=== PATIENT | female | born 1945 | race Caucasian/White ===

== ENCOUNTER → 2016-05-08 | Outpatient (CLI) | payer MEDICARE, OTHER ==
[~2016-05-08] MED LIST: ASA325 MG PO; ASPIRIN EC81 MG PO; B COMPLEX WITH1 EACH PO; CALCIUM 600 +1 EAC3 PO; CRANBERRY TABL1 EACH PO; CYMBALTA60 MG PO; EFFEXOR XR75 MG PO; FISH OIL OMEGA1 EAC1 PO; GLUTOSE 1537.5 GM PO; HAIR SKIN NAIL1 EACH PO; HYDROCODON-ACE1 EAC2 PO; LIPITOR DPS10 MG PO; LYRICA225 MG PO; METFORMIN HCL500 M2 PO; MIRALAX PACKET17 GM PO; MULTI VITAMIN1 EACH PO; NOVOLOG100 UNIT/2 SQ; OXY IR DPS5 MG PO; PLAVIX75 MG PO; PREVACID30 MG PO; SENOKOT S1 TAB PO; TENORMIN DPS50 MG PO; TYLENOL DPS325 MG PO; VISION VITAMIN1 EACH PO; VITAMIN D-32000 UNI1 PO
== END | disposition home or self-care (01) ==
LOC: PTH.S 10:12
DX: Z01.818 Encounter for other preprocedural examination (principal)

== ENCOUNTER 2016-05-20 09:58 | Inpatient (IN) | payer MEDICARE, OTHER ==
[~2016-05-20] VITALS: Ht 160 cm; Wt 82.0 kg
--- NOTE | 2016-05-20 14:09 | HP ---
ADMIT: 05/20/2016 RM/LOC: W.05 [facility] MR#: [id number] [address] [address] BRYSON MONTOYA [address] [place] [address] Pre-OP History and Physical SEX: F AGE: 71 : 1945 DATE OF SERVICE: CHIEF COMPLAINT: Right knee pain. HISTORY OF PRESENT ILLNESS: The patient is a 71-year white female with right knee DJD. She has had a left total knee arthroplasty done well from this. Right knee also failed nonoperative treatment. PAST MEDICAL HISTORY: Significant for anxiety, panic attacks, atrial fibrillation, history of lymphoma, history of depression, diabetes, fibromyalgia, GERD, irregular heartbeat, osteoarthritis, rheumatoid arthritis, sleep apnea. She has had knee arthroscopy, shoulder arthroscopy, carpal tunnel release, and again left knee replacement. MEDICATIONS: 1. Fish oil. 2. Aspirin. 3. Cranberry. 4. Vitamin B complex. 5. Biotin. 6. Plavix. 7. Lyrica. 8. Prevacid. 9. Vitamin D3. 10.Multivitamin. 11.Calcium. 12.Hydrocodone. 13.Cyclobenzaprine. 14.Crestor. 15.Atenolol. 16.Cymbalta. ALLERGIES: NO ALLERGIES. SOCIAL HISTORY: The patient does not smoke or regularly drink alcohol. PHYSICAL EXAMINATION: HEENT: Normocephalic and atraumatic. CV: Irregular heart. LUNGS: Benign. ABDOMEN: Benign. ABDOMEN: Benign. NEUROLOGIC: Awake and oriented x3. MUSCULOSKELETAL: Shows some mild swelling of the knee. Full extension, 110 degrees of flexion. Tender over the medial joint line of the patellofemoral joint. ADMIT: 05/20/2016 RM/LOC: W.05 [facility] MR#: [id number] [address] [address] BRYSON MONTOYA [address] [place] [address] Pre-OP History and Physical SEX: F AGE: 71 : 1945 IMAGING DATA: X-rays show right knee that DJD, almost [id number] medially; show some lateral joint line osteophytes, patellofemoral narrowing with osteophytic formation. ASSESSMENT AND PLAN: Right knee degenerative joint disease. At this point, we will plan right total knee arthroplasty. The patient understands the risks and benefits of the surgical intervention, which include, but not limited to infection, DVT, arthrofibrosis, neurovascular injury, early loosening, etc and desires to proceed. She will see her medical doctor for preoperative medical clearance and follow postoperatively in the hospital for anticoagulation and any medical issues that may arise. Please do refer that H and P for any in-depth medical issues or medication changes. Minh Soto MD/ karla JOB #: [id number] CC: Minh Soto, Attending Physician Jhoan Sears, Family Physician
[2016-05-24] MEDS ORDERED: EFFEXOR XR75 MG PO (14:10)
[2016-05-24] MEDS ORDERED: LYRICA225 MG PO (14:10)
[2016-05-24] MEDS ORDERED: CYMBALTA60 MG PO (14:10)
[2016-05-24] MEDS ORDERED: LIPITOR DPS10 MG PO (14:10)
[2016-05-24] MEDS ORDERED: ASA325 MG PO (14:10)
[2016-05-24] MEDS ORDERED: TENORMIN DPS50 MG PO (14:11)
[2016-05-24] MEDS ORDERED: SENOKOT S1 TAB PO (14:11)
[2016-05-24] MEDS ORDERED: MIRALAX PACKET17 GM PO (14:11)
[2016-05-24] MEDS ORDERED: MULTI VITAMIN1 EACH PO (14:12)
[2016-05-24] MEDS ORDERED: HYDROCODON-ACE1 EAC2 PO (14:12)
[2016-05-24] MEDS ORDERED: TYLENOL DPS325 MG PO (14:13)
[2016-05-24] MEDS ORDERED: NOVOLOG100 UNIT/2 SQ (14:13)
[2016-05-24] MEDS ORDERED: GLUTOSE 1537.5 GM PO (14:14)
[2016-05-24] MEDS ORDERED: OXY IR DPS5 MG PO (14:14)
[2016-05-24] MEDS ORDERED: HAIR SKIN NAIL1 EACH PO (14:15)
[2016-05-24] MEDS ORDERED: PLAVIX75 MG PO (14:15)
[2016-05-24] MEDS ORDERED: ASPIRIN EC81 MG PO (14:15)
[2016-05-24] MEDS ORDERED: PREVACID30 MG PO (14:15)
[2016-05-24] MEDS ORDERED: METFORMIN HCL500 M2 PO (14:15)
[2016-05-24] MEDS ORDERED: VITAMIN D-32000 UNI1 PO (14:15)
[2016-05-24] MEDS ORDERED: FISH OIL OMEGA1 EAC1 PO (14:16)
[2016-05-24] MEDS ORDERED: VISION VITAMIN1 EACH PO (14:16)
[2016-05-24] MEDS ORDERED: CALCIUM 600 +1 EAC3 PO (14:16)
[2016-05-24] MEDS ORDERED: CRANBERRY TABL1 EACH PO (14:16)
--- NOTE | 2016-05-27 14:12 | OR ---
ADMIT: 05/20/2016 RM/LOC: 504 [facility] MR#: [id number] [address] [address] BRYSON MONTOYA [address] [place] [address] Operative/Delivery Room Report SEX: F AGE: 71 : 1945 SURGERY DATE: 05/20/2016 SURGEON: Minh Soto MD PREOPERATIVE DIAGNOSIS: Right knee degenerative joint disease. POSTOPERATIVE DIAGNOSIS: Right knee degenerative joint disease. PROCEDURE PERFORMED: Right total knee arthroplasty with Xavier and Xavier system, size 3 posterior stabilized femoral component, size 3 tibial tray, 10 mm posterior stabilized tibial insert, size 35 patellar button. ASSISTANTS: Carl Butcher PA-C and PABLO Nance ANESTHESIA: Spinal. ESTIMATED BLOOD LOSS: Minimal. FLUIDS: Per anesthetic record. COMPLICATIONS: No complications. DRAIN: One drain. TOURNIQUET TIME: 52 minutes. CONDITION ON DISCHARGE: Patient returned to the recovery room in fair condition. INDICATION: The patient has been having right knee pain refractory to nonoperative treatment. She has had a left total knee arthroplasty, done very well from this. She desires right total knee arthroplasty. She understands the risks and benefits of procedure and desired to proceed with the operation. PROCEDURE IN DETAIL: The patient was taken to the OR, spinal placed. She was laid in the supine position. All bony prominences were well padded. Well- padded tourniquet applied to right lower extremity. Right lower extremity was prepped and draped in the usual sterile fashion. It was exsanguinated and tourniquet inflated to 350 mmHg. An anterior incision was then made over just above the patella, carried down the medial aspect of the tibial tubercle through the skin and subcutaneous tissue with a skin knife. Medial arthrotomy then performed with #10 blade. Patella everted, knee flexed. ACL, PCL, medial, and lateral menisci excised. Step drill was then used to open the intramedullary canal of the femur. I placed an IM alignment guide down the intramedullary canal of the femur, set at 11 mm resection, 5 degrees of valgus cut and pinned it to the anterior aspect of the distal femur. I then cut the distal femur using an oscillating saw. I removed this cutting block and sized the femur to 3. I placed a size 3 four-in-one cutting block on the distal aspect of the femur in 3 degrees of external rotation, made the 4 appropriate ADMIT: 05/20/2016 RM/LOC: 504 [facility] MR#: [id number] [address] [address] BRYSON MONTOYA [address] [place] [address] Operative/Delivery Room Report SEX: F AGE: 71 : 1945 cuts using an oscillating saw. I removed this cutting block and placed the box cutting jig on the distal aspect of the femur. I cut the box out of the distal femur using a reciprocating saw. The proximal tibia was then cut perpendicular to the long axis of the tibial shaft using the proximal tibial cutting guide and oscillating saw. The posterior aspect of the patella was cut, flush with the posterior aspects of the quadriceps patella tendons using the patella cutting saw. It was sized to a 35 and step drilled with a guide. Trial components were then placed. A size 3 tibial tray with 10 mm insert gave excellent range of motion, stability, and patellar tracking. Thus, the femoral component was step drilled. The tibial component was step drilled and cruciate punched. Trial components were then removed. Knee thoroughly irrigated with bacitracin solution and dried. Knee thoroughly injected with Exparel throughout. I then cemented the tibia, patellar, and femoral components into the place removing all extraneous cement as it dried. I impacted the 10 mm insert into the tibial tray and ran the knee through a range of motion. It had excellent range of motion, stability, and patellar tracking. Thus, one deep drain was then placed. Medial arthrotomy closed using #1 Vicryl, subcutaneous tissue closed using 2-0 Vicryl, and skin closed using quan. Wounds were washed, dried, dressed with sterile Adaptic, 4x4s, ABD, Webril, and Zev wrap. An ice pad placed on top of the Zev wrap, drapes removed, tourniquet let down. The patient transferred back to recovery room in fair condition. Minh Soto MD/ karla JOB #: [id number] CC: Minh Soto, Attending Physician Jhoan Sears, Family Physician
--- NOTE | 2016-06-10 15:15 | DS ---
ADMIT: 05/20/2016 RM/LOC: 504 [facility] MR#: [id number] [address] [address] [place] [address] General Discharge Summary SEX: F AGE: 71 : 1945 ADMISSION DATE: 05/20/2016 DISCHARGE DATE: 05/23/2016 REASON FOR ADMISSION: Elective right total knee arthroplasty after failing conservative management for osteoarthritis. PREOPERATIVE DIAGNOSIS: Right knee degenerative joint disease. POSTOPERATIVE DIAGNOSIS: Right knee degenerative joint disease. PROCEDURE PERFORMED: Right total knee arthroplasty with Exparel block. ANESTHETIC: Spinal. COMPLICATIONS: None. ESTIMATED BLOOD LOSS: Minimal. SURGEON: Minh Soto MD. ASSISTANTS: 1. Carl Butcher PA-C. 2. PABLO Nance. ACTIVE MEDICAL PROBLEMS: Osteoarthritis, anxiety, panic attacks, atrial fibrillation, history of lymphoma, depression, diabetes, fibromyalgia, GERD, rheumatoid arthritis, sleep apnea. HOSPITAL COURSE: Bryson was admitted on 05/20/2016, for elective right total knee arthroplasty, was completed successfully by Dr. Soto. There were no complications. Postoperatively, she did well with pain control with use of intraoperative Exparel as well as oral analgesics, participated well with physical therapy. Postoperative Hemovac was used and pulled on day #1. She did well and tolerated that. Remainder of the hospital course was unremarkable. She did, however, experienced mild acute surgical blood-loss anemia where her hemoglobin dropped to 8.7, but remained hemodynamically stable, did not require transfusion. By postoperative day #3, she was stable and ready for discharge with plans for continued outpatient therapy. DISCHARGE MEDICATIONS: 1. Aspirin 325 mg daily. 2. Cymbalta 60 mg daily. 3. Effexor 75 mg daily. 4. Lipitor 10 mg daily. 5. Lyrica 225 mg b.i.d. 6. MiraLax p.r.n. 7. Senokot b.i.d. p.r.n. ADMIT: 05/20/2016 RM/LOC: 504 [facility] MR#: [id number] [address] [address] [place] [address] General Discharge Summary SEX: F AGE: 71 : 1945 8. Tenormin 50 mg b.i.d. 9. Therapeutic multivitamin daily. 10.Tylenol 650 mg q.4 p.r.n. 11.Ultram 50 mg one to two q.6 p.r.n. 12.NovoLog sliding scale insulin as directed. 13.OxyIR 5 mg one to two q.4 p.r.n. DISCHARGE INSTRUCTIONS: Bryson will undergo physical therapy per total knee arthroplasty protocol, wear her knee immobilizer at night x4 weeks, MANUEL hose x4 weeks. She will follow up in the Orthopedic office in 2 weeks for wound check, 6 weeks with x-rays. She will follow up with primary care, Dr. Sears in 2 weeks. Carl Butcher PA-C / Minh Soto MD / karla JOB #: [id number] CC: Minh Soto MD, Attending Physician Jhoan Sears MD, Family Physician
[2016-06-11] MEDS ORDERED: B COMPLEX WITH1 EACH PO (06:18)
== END 2016-05-23 14:00 | DRG 470 ==
LOC: WOR 09:58 → 5MS 09:58
PROVIDERS: ADMIT Orthopaedic Surgery
PROC: 0SRC0J9 Replacement of Right Knee Joint with Synthetic Substitute, Cemented, Open Approach (ICD-10-PCS; principal; 2016-05-20)
DX: M17.11 Unilateral primary osteoarthritis, right knee (principal); D62 Acute posthemorrhagic anemia; I48.91 Unspecified atrial fibrillation; E11.9 Type 2 diabetes mellitus without complications; M06.9 Rheumatoid arthritis, unspecified; F41.0 Panic disorder [episodic paroxysmal anxiety]; F32.9 Major depressive disorder, single episode, unspecified; I10 Essential (primary) hypertension; M79.7 Fibromyalgia; E55.9 Vitamin D deficiency, unspecified; M48.06 Spinal stenosis, lumbar region; E78.5 Hyperlipidemia, unspecified; K21.9 Gastro-esophageal reflux disease without esophagitis; G47.30 Sleep apnea, unspecified; Z96.652 Presence of left artificial knee joint; Z79.82 Long term (current) use of aspirin; Z85.72 Personal history of non-Hodgkin lymphomas; Z86.73 Personal history of transient ischemic attack (TIA), and cerebral infarction without residual deficits; Z87.442 Personal history of urinary calculi; Z79.84 Long term (current) use of oral hypoglycemic drugs

== ENCOUNTER 2016-06-09 07:08 | Inpatient (IN) | payer MEDICARE, OTHER ==
[~2016-06-09] VITALS: Ht 160 cm; Wt 78.0 kg
--- NOTE | ~2016-06-09 | CO ---
ADMIT: 06/09/2016 RM/LOC: 404 [facility] MR#: [id number] 2620 [facility] [address] [place] [phone] BRYSON MONTOYA [address] [place] [address] Consultation SEX: F AGE: 71 : 1945 DATE OF CONSULTATION: 06/09/2016 ATTENDING PHYSICIAN: Jhoan Sears CONSULTING PHYSICIAN: Migue Leiva MD HISTORY: This is a 71-year-old female, who is nearly 3 weeks postop from a joint replacement, who presented to the ER today with complaints of rectal bleeding. She noticed blood in the toilet after a bowel movement. She has had some constipation after the joint replacement. She had a small amount of clot present with the stool and subsequently also had some bloody drainage once she came to the ER. She was evaluated, found to be anemic. However, that anemia was very similar to what it had been and was actually better than her prior admission. Since admission, she has not had further rectal bleeding to speak of. She has personal history of lymphoma. She just recently after surgery did resume her Plavix and aspirin therapies. She had a colonoscopy in 2014 which was otherwise normal with the exception of internal hemorrhoids. She has never had a bleeding ulcer. She did not notice any black stool and has no other abdominal or GI symptoms. PAST MEDICAL HISTORY: Lymphoma, diabetes, gastroesophageal reflux disease, fibromyalgia, atrial fibrillation, depression, panic attacks, anxiety, rheumatoid arthritis, osteoarthritis, sleep apnea. PAST SURGICAL HISTORY: Knee arthroscopy, shoulder arthroscopy, carpal tunnel release, left knee replacement. MEDICATIONS: 1. Plavix. 2. Aspirin. 3. Fish oil. 4. Cranberry. 5. Lyrica. 6. Prevacid. 7. Vitamin D3. 8. Multivitamin. 9. Calcium. 10.Hydrocodone. 11.Cyclobenzaprine. 12.Crestor. 13.Atenolol. 14.Cymbalta. ALLERGIES: NO KNOWN MEDICAL ALLERGIES. SOCIAL HISTORY: She does not drink alcohol or smoke. REVIEW OF SYSTEMS: A 10-point review of systems is performed and negative for any other recent change with the exception of the symptoms mentioned in the ADMIT: 06/09/2016 RM/LOC: 404 [facility] MR#: [id number] [address] [address] BRYSON MONTOYA [address] [place] [address] Consultation SEX: F AGE: 71 : 1945 history of present illness. PHYSICAL EXAMINATION: GENERAL: Bryson is alert, oriented, and in no acute distress. She is afebrile and vital signs remain stable. Cranial nerves are intact. NECK: Supple, without lymphadenopathy. LUNGS: Clear bilaterally. HEART: Regular rate and rhythm without murmur. ABDOMEN: Soft and nontender. EXTREMITIES: Calves are soft bilaterally with no clubbing, cyanosis, or edema. No new focal neurologic deficit. IMPRESSION: Rectal bleeding 3 weeks postop from her right total knee replacement. She had resumed her anti-platelet therapies with aspirin and Plavix. PLAN: Given that she has had a colonoscopy in 2015 less than 2 years ago, would not plan to endoscopically evaluate unless she has ongoing signs of bleeding. We will hold her anti-platelet therapy currently and assess to see if this will stop. If it continues, I did discuss bowel prep and proceeding with colonoscopy for further workup. We discussed this as our plan and she agrees. Migue Leiva MD/ karla JOB #: [id number] CC: Jhoan Sears, Attending Physician Jhoan Sears, Family Physician
[~2016-06-09 07:08] MED LIST changes: -B COMPLEX WITH1 EACH PO
--- NOTE | 2016-06-10 08:50 | HP ---
ADMIT: 06/09/2016 RM/LOC: 404 [facility] MR#: [id number] [address] [address] BRYSON MONTOYA [address] [place] [address] History and Physical SEX: F AGE: 71 : 1945 DATE OF SERVICE: CHIEF COMPLAINT: Rectal bleeding. HISTORY OF PRESENT ILLNESS: Bryson Montoya is a very nice 71-year-old female, who recently had a total knee replacement. She finished 35 days of full dose aspirin and transitioned to 81 mg of aspirin and her Plavix. Normal state of health up until this morning. She has no increased abdominal pain, GERD. No acid reflux or anything of that nature but did have a large painless bowel movement predominantly of blood and clots. She presented to the Emergency Department, was noted to have a hemoglobin of approximately 9. This is actually lower since her last H and H drawn postsurgery. Did have rectal exam reported. No internal hemorrhoids or fissures noted. She did have basic laboratories and is referred to me for admission. The patient did have to spend some time in Short Stay Surgery secondary to bed availability. Did have a repeat H and H while there which was actually stable. I evaluated her at her bedside, states she has no abdominal pain. She is in her normal state of health. No recent changes in her bowels prior to this. No bladder changes. No changes in her diet. She has not mistakenly been taking full dose aspirin with the Plavix. She has been taking 81 mg of aspirin and then 75 mg of Plavix. She simply sat down this morning to have a bowel movement and had a large painless movement of blood and blood clots. She has already been evaluated by General Surgery. They gave her a clear diet and at this point are monitoring her. I have already given her some gentle IV fluids as well as some IV Protonix. PAST MEDICAL HISTORY: Reviewed and unchanged from my last history and physical. FAMILY HISTORY: Reviewed and unchanged from my last history and physical. SOCIAL HISTORY: Reviewed and unchanged from my last history and physical. MEDICATIONS: 1. Plavix. 2. Lansoprazole. 3. Atenolol. 4. Atorvastatin. 5. Duloxetine. 6. Multivitamin. 7. Aspirin. 8. Vitamin D. 9. Skin, hair, and nail supplement. 10.Cranberry tablets. 11.PreserVision. 12.Fish oil. 13.Lyrica. 14.Venlafaxine. 15.Metformin. ADMIT: 06/09/2016 RM/LOC: 404 [facility] MR#: [id number] [facility] [address] [address] BRYSON MONTOYA [address] [place] [address] History and Physical SEX: F AGE: 71 : 1945 16.B complex. 17.Calcium with vitamin D. 18.Marine phytoplankton. 19.Lortab. ALLERGIES: TIZANIDINE AND LATEX AND ANESTHETICS. REVIEW OF SYSTEMS: Complete review of systems reviewed per HPI. PHYSICAL EXAMINATION: VITAL SIGNS: Blood pressure is 130/58, pulse 61, respiratory rate is 20, temperature is 98 degrees, she is 98% on room air. GENERAL: She is alert and oriented x3. No acute distress. HEENT: Head is normocephalic and atraumatic. Extraocular muscles intact. Pupils equal, round, responsive to light. No nasal discharge. NECK: Supple. HEART: Regular rhythm and rate. LUNGS: Clear to auscultation bilaterally. ABDOMEN: Soft, nontender, and nondistended with positive bowel sounds. EXTREMITIES: No clubbing, cyanosis, or edema. LABORATORY DATA: White blood cells 4.7, hemoglobin is 9.6, platelets 211, INR is 1.03. Sodium 145, potassium is 3.4, chloride is 109, bicarb is 27, BUN is 14, creatinine 0.6, glucose 113, total bilirubin 0.7, total protein 6.6, albumin is 3.3, AST is 15, ALT is 14. Repeat H and H hemoglobin is 9.4. ASSESSMENT AND PLAN: 1. Painless rectal bleeding. 2. Acute blood loss anemia. 3. History of gastroesophageal reflux disease. 4. Type 2 diabetes mellitus. 5. Major depressive disorder. ADMIT: 06/09/2016 RM/LOC: 404 [facility] MR#: [id number] [address] [address] BRYSON MONTOYA [address] [place] [address] History and Physical SEX: F AGE: 71 : 1945 At this time, we will go ahead and hold her aspirin and Plavix. We will maintain her on the IV Protonix. Maintain her on gentle IV fluids. We will check serial H and H's and monitor. She is hemodynamically stable at this time. If not during this hospitalization, at some point, she will need an evaluation with a colonoscopy. She is on SCD's and MANUEL hose for the time being without pharmacologic prophylaxis secondary to active gastrointestinal bleeding. She is a full code. I discussed the plan with the patient, who expressed understanding, was in agreement, and had no further questions. Jhoan Sears MD/ karla JOB #: [id number] CC: Jhoan Sears, Attending Physician hJoan Sears, Family Physician
[2016-06-11] MEDS ORDERED: B COMPLEX WITH1 EACH PO (06:18)
--- NOTE | 2016-06-11 10:11 | CO ---
ADMIT: 06/09/2016 RM/LOC: 404 [facility] MR#: [id number] [address] [address] BRYSON MONTOYA [address] [place] [address] Consultation SEX: F AGE: 71 : 1945 DATE OF CONSULTATION: 06/09/2016 ATTENDING PHYSICIAN: Jhoan Sears CONSULTING PHYSICIAN: Migue Leiva MD REASON FOR CONSULTATION: Lower GI bleed. HISTORY OF PRESENT ILLNESS: Bryson is a very pleasant, 71-year-old female, who apparently went to void this morning, and when she sat on the toilet, she happened to notice bright red blood leaking from her backside. She said she has noticed blood down there before and has been diagnosed with a history of hemorrhoids, but she has never had bleeding like this to this extent before. She denies any diarrhea, constipation, dark stools, pain, or nausea and vomiting. Of note, she is on anticoagulation and takes 81 mg aspirin and Plavix. She has been taking both these medications for many years but stopped them recently due to recent orthopedic surgery. She is not sure exactly when she resumed these medications, but she believes it was sometime when she was in rehab at [facility]. PAST MEDICAL HISTORY: Significant for atrial fibrillation, lymphoma, depression with anxiety, rheumatoid arthritis, and GERD. PAST SURGICAL HISTORY: 1. The patient is unaware of any prior EGD's. However, her last colonoscopy was about a year ago where she said it was cleared. I do not have these records, so it must have been attained at the Surgery Center. 2. Laparoscopic cholecystectomy. ALLERGIES: NOVOCAIN, LATEX, TIZANIDINE. MEDICATIONS: Well documented in chart. Please see HPI. FAMILY HISTORY: Noncontributory. SOCIAL HISTORY: The patient denies any tobacco, alcohol, or illicit drug use. REVIEW OF SYSTEMS: CONSTITUTIONAL: The patient denies any fever, chills, or night sweats. HEAD: The patient gets occasional "halo" headaches but have not gotten worse recently. EYES: The patient has noticed some blurriness and decreased acuity in the left eye, but denies any eye pain or foreign body sensation. She further denies any problems with the right eye. PHYSICAL EXAMINATION: GENERAL: The patient is in no acute distress. She is alert and oriented. HEENT: Head is normocephalic and atraumatic. EOMS are intact. Conjunctivae free of icterus, erythema, or pallor. Pinnae, free of deformities. Nose is ADMIT: 06/09/2016 RM/LOC: 404 [facility] MR#: [id number] [address] [address] BRYSON MONTOYA [address] [place] [address] Consultation SEX: F AGE: 71 : 1945 midline. No tracheal deviation. NECK: Supple. SKIN: Negative for jaundice, clubbing, edema, pallor, or cyanosis. LUNGS: Normal respiratory effort. HEART: Distal pulses intact. Regular rate and rhythm. ABDOMEN: Soft, nondistended, and nontender. NEURO: Grossly intact. MUSCULOSKELETAL: The patient ambulating in room. Full active range of motion. LABORATORY DATA: Hemoglobin 9.4. ASSESSMENT: Anemia, common lower GI bleed. PLAN: The plan, as of right now, is to monitor the patient and see if this resolves. She does have a unit of packed red blood cells ordered. So, we will see in the near future if this will be necessary. In the meantime, we will follow her in the hospital and watch her lytes closely. Thank you for the consultation on this patient. PABLO Horta / Migue Leiva MD / karla JOB #: [id number] CC: Jhoan Sears, Attending Physician Jhoan Sears, Family Physician
--- NOTE | 2016-06-12 10:36 | DS ---
ADMIT: 06/09/2016 RM/LOC: 404 [facility] MR#: [id number] [address] [address] BRYSON MONTOYA [address] [place] [address] Discharge Summary SEX: F AGE: 71 : 1945 ADMISSION DATE: 06/09/2016 DISCHARGE DATE: 06/10/2016 CONSULTATIONS: Dr. Bass. FINAL DIAGNOSES: 1. Rectal bleeding. 2. History of CVA (cerebrovascular accident), on antiplatelet therapy. 3. Nonobstructive coronary artery disease, on antiplatelet therapy. REASON FOR ADMISSION: Please see H and P. However, admitted for rectal bleeding. HOSPITAL COURSE: Admitted to the service of [facility] under the care of myself, Jhoan Sears MD. Receives consultation with General Surgery. Did pass some old clots. Hemoglobin did remain stable throughout her hospitalization off of aspirin and Plavix. At this time, General Surgery does opt for an outpatient endoscopy to be completed on June 16. We will discharge her to home holding her anti-platelet therapy. However, we will reinstate this as soon as we can safely do so. DISPOSITION: Home. DISCHARGE CONDITION: Stable. DISCHARGE MEDICATIONS: See medication reconciliation, reviewed and accurate. DISCHARGE INSTRUCTIONS: Discharged to home. Follow up with repeat laboratories in my office on the and the . Endoscopy to be completed on the . Any further bleeding present immediately to the Emergency Department. Discussed plan with the patient, expressed understanding, was in agreement and had no further questions. Thirty minutes spent on discharge activities of this patient. Jhoan Sears MD/ breanag JOB #: [id number] CC: Jhoan Sears MD, Attending Physician Jhoan Sears MD, Family Physician
--- NOTE | 2016-06-25 15:23 | ER ---
ADMIT: 06/09/2016 RM/LOC: WER.02 [facility] MR#: [id number] [address] [address] JAN, BRYSON Acuna [address] [place] [address] Emergency Room Report SEX: F AGE: 71 : 1945 DATE: 06/09/2016 ADDENDUM: A 71-year-old white female, coming in with GI bleed. She thought it was hemorrhoids. I do see some tags, but she has johnnie red blood. I do not feel anything on digital exam. Hemoglobin 9.6, about a month ago she was in 12, however, she did have a knee replaced in the interim, so that could have dropped her hemoglobin as well. She is on Plavix. I spoke with Dr. Sears. At this time, PT and PTT are negative. We are going to admit her for a GI bleed. She has an IV. CONDITION ON DISCHARGE: Serious but stable. Jhoan Shane MD/ karla JOB #: [id number] CC: Jhoan Sears MD, Attending Physician Jhoan Sears MD, Family Physician
== END 2016-06-10 11:40 | disposition home or self-care (01) | DRG 378 ==
LOC: ER 07:08 → WER 10:20 → 4PCU 10:20
PROVIDERS: ADMIT Internal Medicine
DX: K92.1 Melena (principal); D62 Acute posthemorrhagic anemia; E87.0 Hyperosmolality and hypernatremia; E11.9 Type 2 diabetes mellitus without complications; I48.91 Unspecified atrial fibrillation; K21.9 Gastro-esophageal reflux disease without esophagitis; F32.9 Major depressive disorder, single episode, unspecified; G47.30 Sleep apnea, unspecified; F41.9 Anxiety disorder, unspecified; M06.9 Rheumatoid arthritis, unspecified; M79.7 Fibromyalgia; I25.10 Atherosclerotic heart disease of native coronary artery without angina pectoris; M19.90 Unspecified osteoarthritis, unspecified site; F41.0 Panic disorder [episodic paroxysmal anxiety]; Z79.02 Long term (current) use of antithrombotics/antiplatelets; Z85.72 Personal history of non-Hodgkin lymphomas; Z79.82 Long term (current) use of aspirin; Z96.653 Presence of artificial knee joint, bilateral; Z86.73 Personal history of transient ischemic attack (TIA), and cerebral infarction without residual deficits

== ENCOUNTER 2016-06-30 06:30 | Day surgery (SDC) | payer MEDICARE, OTHER ==
[~2016-06-30 06:30] MED LIST changes: +B COMPLEX WITH1 EACH PO
== END 2016-06-30 10:36 | disposition home or self-care (01) ==
DX: K92.2 Gastrointestinal hemorrhage, unspecified (principal); I48.91 Unspecified atrial fibrillation; E78.5 Hyperlipidemia, unspecified; E11.9 Type 2 diabetes mellitus without complications; K21.9 Gastro-esophageal reflux disease without esophagitis; G43.909 Migraine, unspecified, not intractable, without status migrainosus; Z86.73 Personal history of transient ischemic attack (TIA), and cerebral infarction without residual deficits; Z86.010 Personal history of colon polyps; Z88.8 Allergy status to other drugs, medicaments and biological substances

== ENCOUNTER → 2016-07-02 | Outpatient (CLI) | payer MEDICARE, OTHER ==
--- NOTE | ~2016-07-02 | ECH ---
Transthoracic Echocardiography Report (TTE) Demographics Patient Name BRYSON MONTOYA Date of Study 07/02/2016 Patient Number [id number] Visit Number [id number] Date of 1945 Room Number Accession Number [id number] Gender Female Age 71 year(s) Referring Lela Acuna APRN [employer] Decapper Carmen Stokes RUST Physician Physician Interpreting Nora Degroot Focuser Physician MD Supervising Ordering Physician Lela Acuna APRN, MD/MLP Nurse Stress Filling Machine Tender Conclusions Summary Technically fair exam. The estimated left ventricular ejection fraction is 55-60%. Mild left ventricular hypertrophy. Diastolic assessment reveals Grade I diastolic dysfunction. No significant valvular abnormalities. Procedure Type of Study TTE procedure:Echo Complete SF. Procedure Date Date: 07/02/2016 Start: 09:11 AM Technical Quality: Fair due to body habitus. Indications:Pre-syncope and Chest pressure. Appropriate Use Criteria: 9 Height: 63 inches Weight: 170 pounds BSA: 1.8 m Rhythm: Sinus bradycardia HR: 66 bpm BP: 125/58 mmHg M-Mode/2D Measurements LV Diastolic Dimension: 4.48 cm LV Systolic Dimension: 3.69 cm LV Septum Diastolic: 0.95 cm LV PW Diastolic: 1.12 cm AO Root Dimension: 3.03 cm Cardiac Output: 0.04 l/min LA Dimension: 3.6 cm Cardiac Index: 0.02 l/min*m RV Diastolic Dimension: 3.29 cm LA volume index: 33 ml/m LVOT: 1.88 cm LVOT VTI: 0.22 cm RV Base: 3.53 cm LV Stroke volume: 0.61 ml RV Mid: 2.4 cm LV Stroke volume index: 0.34 ml/m RV Length: 7 cm TAPSE: 3.38 cm Doppler Measurements AV Peak Velocity: 1.3 m/s MV Peak E-Wave: 0.94 m/s AV Peak Gradient: 6.76 mmHg MV Peak A-Wave: 1.08 m/s AV Mean Gradient: 3.2 mmHg MV E/A Ratio: 0.87 LVOT Peak Velocity: 0.87 m/s MV P1/2t: 67 msec AV Area (Continuity):2.1 cm MV Deceleration Time: 231 msec TR Velocity:2.06 m/s MV Area (PHT): 3.28 cm TR Gradient:16.97 mmHg PV Peak Velocity: 0.58 m/s Estimated RAP:3 mmHg PV Peak Gradient: 1.35 mmHg Estimated RVSP: 20 mmHg Estimated PASP: 19.97 mmHg RA Area: 16 cm Findings Left Ventricle The left ventricle is normal in size . Mild left ventricular hypertrophy. Diastolic assessment reveals Grade I diastolic dysfunction. Right Ventricle Normal right ventricle structure and function. Left Atrium Normal left atrial size. Right Atrium Normal right atrial size. Mitral Valve Normal mitral valve structure and function. Trivial mitral regurgitation by color Doppler. Aortic Valve The aortic valve is mildly sclerotic. Tricuspid Valve Normal appearing tricuspid valve. Trivial tricuspid regurgitation by color Doppler. Pulmonic Valve Normal pulmonic valve structure and function. Mild pulmonic valve regurgitation by color Doppler. Pericardial Effusion No evidence of pericardial effusion. Miscellaneous Visualized portions of the aortic root and ascending aorta appear normal in size. Pleural Effusion No evidence of pleural effusion. Signature
== END | disposition home or self-care (01) ==
LOC: CARD 09:00
DX: R07.89 Other chest pain (principal); R00.2 Palpitations; R55 Syncope and collapse; I51.7 Cardiomegaly